=== PATIENT | male | born 1975 | race Caucasian/White ===

== ENCOUNTER 2020-08-05 14:40 | Outpatient (REF) | payer OTHER, SELFPAY | END 2020-08-05 14:41 | disposition home or self-care (01) | LOC: HO.LNP 14:40 | PROVIDERS: Visit Provider Internal Medicine | DX: Z20.828 Contact with and (suspected) exposure to other viral communicable diseases (principal) | CPT/HCPCS: U0003 ==

== ENCOUNTER 2020-10-21 13:46 | Outpatient (REF) | payer OTHER, SELFPAY ==
[2020-10-21 14:41] LABS: Influenza A PCR NEGATIVE (Negative); Influenza B PCR NEGATIVE (Negative); Resp Syncy Virus RNA Qual PCR NEGATIVE (Negative); SARS COV2 PCR INHOUSE NEGATIVE (Negative)
== END 2020-10-21 13:47 | disposition home or self-care (01) ==
LOC: HO.LNP 13:46
PROVIDERS: Visit Provider Internal Medicine
DX: R11.10 Vomiting, unspecified (principal); R50.9 Fever, unspecified; Z20.822 Contact with and (suspected) exposure to COVID-19
CPT/HCPCS: 0241U

== ENCOUNTER 2021-02-11 10:50 | Outpatient (REF) | payer OTHER, SELFPAY ==
[2021-02-11 12:12] LABS: MANUAL DIFF FLAG NO
[2021-02-11 12:19] LABS: Basophils Absolute Auto 0.1 X10*3/uL (0.0-0.2); Basophils Percent Auto 0.6 % (0-2); Eosinophils Absolute Auto 0.3 X10*3/uL (0.0-0.4); Eosinophils Percent Auto 1.9 % (0-4); Hematocrit 46.9 % (42-52); Imm Gran Abs Auto 0.06 X10*3/uL (0.00-0.03); Imm Gran Pct Auto 0.4 % (0.0-0.4); Lymphocytes Absolute Auto 1.9 X10*3/uL (1.2-4.9); Mean Corpuscular Hemoglobin 26.9 pg (27.0-33.0); Mean Corpuscular Volume 84.2 fL (80-98); Mean Platelet Volume 10.2 fL (9.4-12.4); Monocytes Absolute Auto 0.8 X10*3/uL (0.1-1.2); Monocytes Percent Auto 5.2 % (2-11); Neutrophils Absolute Auto 11.4 X10*3/uL (2.0-8.3); Neutrophils Percent Auto 78.9 % (45-73); Platelet Count 310 X10*3/uL (160-400); Red Blood Count 5.57 X10*6/uL (4.60-5.80); Red Cell Distribution Width 14.7 % (11.0-16.0); White Blood Count 14.5 X10*3/uL (4.8-10.8)
[2021-02-11 12:53] LABS: Lithium 0.46 mmol/L (0.60-1.20)
[2021-02-11 13:03] LABS: Alanine Aminotransferase 37 U/L (0-40); Albumin Level 4.7 g/dL (3.5-5.0); Alkaline Phosphatase 82 U/L (39-117); Anion Gap 14 (12-20); Aspartate Amino Transferase 25 U/L (5-37); Bilirubin Total 2.3 mg/dL (0.0-1.0); Blood Urea Nitrogen 9 mg/dL (9-16); C Reactive Protein 2.24 mg/dL (< or = 0.50); Calcium 9.7 mg/dL (8.4-10.2); Carbon Dioxide 23 mmol/L (22-29); Chloride 106 mmol/L (96-108); Estimated Glomerular Filt Rate > 60; Glucose Random 103 mg/dL (60-115); Potassium 4.2 mmol/L (3.3-5.1); Sodium 139 mmol/L (135-145); Total Protein 7.8 g/dL (6.5-8.0)
[2021-02-11 13:34] LABS: Influenza A PCR NEGATIVE (Negative); Influenza B PCR NEGATIVE (Negative); Resp Syncy Virus RNA Qual PCR NEGATIVE (Negative); SARS COV2 PCR INHOUSE NEGATIVE (Negative)
== END 2021-02-11 10:51 | disposition home or self-care (01) ==
LOC: HO.LAB 10:50
PROVIDERS: PCP Internal Medicine; Visit Provider Internal Medicine
DX: Z20.822 Contact with and (suspected) exposure to COVID-19 (principal); R63.4 Abnormal weight loss; R19.7 Diarrhea, unspecified; F31.9 Bipolar disorder, unspecified; Z79.899 Other long term (current) drug therapy
CPT/HCPCS: 0241U; 36415; 80053; 80178; 85025; 86140

== ENCOUNTER 2021-02-19 09:25 | Outpatient (REF) | payer OTHER, SELFPAY ==
--- NOTE | ~2021-02-19 | FL_ITS ---
EXAMINATION: XR GI SERIES CLINICAL INFORMATION: Diarrhea, abnormal weight loss, nausea and vomiting COMPARISON: None TECHNIQUE: Routine upper GI air contrast study was performed in upright and lying position. FINDINGS: Only oral administration of thick barium and effervescent granules there is normal propagation of bolus from the oral cavity through the pharynx, esophagus into stomach without any evidence of obstruction, narrowing or stricture. On placing patient supine and prone lying the course, caliber and peristalsis of the stomach, duodenal bulb and the sweep is normal. The mucosal pattern of this stomach and the duodenum is normal. There is moderate gastroesophageal reflux into the midesophagus. No hiatal hernia seen. FLUOROSCOPY TIME: 1.7 minutes DOSE AREA PRODUCT: 63 uGy-m2 (microgray-meter squared) FL/FL upper GI series IMPRESSION: Moderate gastroesophageal reflux without hiatal hernia. No esophageal, gastric or duodenal lesion seen.
== END 2021-02-19 09:26 | disposition home or self-care (01) ==
LOC: HO.XRAY 09:25
PROVIDERS: PCP Internal Medicine; Visit Provider Internal Medicine
DX: R19.7 Diarrhea, unspecified (principal); R11.2 Nausea with vomiting, unspecified; R63.4 Abnormal weight loss
CPT/HCPCS: 74240

== ENCOUNTER 2021-05-12 11:10 | Outpatient (REF) | payer OTHER, SELFPAY ==
[2021-05-12 11:41] LABS: MANUAL DIFF FLAG NO
[2021-05-12 11:47] LABS: Basophils Absolute Auto 0.1 X10*3/uL (0.0-0.2); Basophils Percent Auto 0.6 % (0-2); Eosinophils Absolute Auto 0.5 X10*3/uL (0.0-0.4); Hematocrit 43.4 % (42-52); Imm Gran Abs Auto 0.08 X10*3/uL (0.00-0.03); Imm Gran Pct Auto 0.5 % (0.0-0.4); Lymphocytes Absolute Auto 2.6 X10*3/uL (1.2-4.9); Lymphocytes Percent Auto 16.8 % (20-40); Mean Corpuscular HGB Conc 32.3 g/dl (31.0-36.0); Mean Corpuscular Hemoglobin 27.9 pg (27.0-33.0); Mean Corpuscular Volume 86.6 fL (80-98); Mean Platelet Volume 9.7 fL (9.4-12.4); Monocytes Absolute Auto 0.8 X10*3/uL (0.1-1.2); Monocytes Percent Auto 4.9 % (2-11); Neutrophils Absolute Auto 11.6 X10*3/uL (2.0-8.3); Neutrophils Percent Auto 74.2 % (45-73); Platelet Count 268 X10*3/uL (160-400); Red Blood Count 5.01 X10*6/uL (4.60-5.80); Red Cell Distribution Width 14.9 % (11.0-16.0); White Blood Count 15.6 X10*3/uL (4.8-10.8)
[2021-05-12 12:17] LABS: Alanine Aminotransferase 20 U/L (0-40); Albumin Level 4.2 g/dL (3.5-5.0); Alkaline Phosphatase 73 U/L (39-117); Anion Gap 11 (12-20); Aspartate Amino Transferase 13 U/L (5-37); Blood Urea Nitrogen 9 mg/dL (9-16); C Reactive Protein 1.55 mg/dL (< or = 0.50); Calcium 9.6 mg/dL (8.4-10.2); Carbon Dioxide 28 mmol/L (22-29); Chloride 106 mmol/L (96-108); Estimated Glomerular Filt Rate > 60; Glucose Random 98 mg/dL (60-115); Potassium 4.6 mmol/L (3.3-5.1); Sodium 140 mmol/L (135-145); Total Protein 6.8 g/dL (6.5-8.0)
[2021-05-12 13:28] LABS: Lithium 0.75 mmol/L (0.60-1.20)
== END 2021-05-12 11:11 | disposition home or self-care (01) ==
LOC: HO.LAB 11:10
PROVIDERS: PCP Internal Medicine; Visit Provider Internal Medicine
DX: I10 Essential (primary) hypertension (principal); E03.9 Hypothyroidism, unspecified; R10.9 Unspecified abdominal pain; R19.7 Diarrhea, unspecified; Z79.899 Other long term (current) drug therapy
CPT/HCPCS: 36415; 80053; 80178; 85025; 86140

== ENCOUNTER 2021-05-25 11:48 | Outpatient (REF) | payer OTHER, SELFPAY ==
--- NOTE | ~2021-05-25 | CT_ITS ---
EXAMINATION: CT ABDOMEN AND PELVIS WITHOUT CONTRAST CLINICAL INFORMATION: Diarrhea and abdominal pain COMPARISON: Previous CT of the abdomen and pelvis February 2019 TECHNIQUE: Multidetector volumetric imaging was performed from the superior aspect of the liver through the pubic symphysis. Sagittal and coronal reformatted images were obtained on the technologist's workstation. This CT examination was performed using dose optimization techniques as appropriate, variously including the following: *Automated exposure control *Adjustment of mA and/or kV according to patient size (this includes techniques or standardized protocols for targeted exams where dose is matched to indication/reason for exam; i.e. extremities or head) *Use of iterative reconstruction technique DLP: 939 mGy-cm FINDINGS: LUNG BASES: The visualized lung bases are unremarkable. LIVER, GALLBLADDER, AND BILIARY TREE: The liver is normal in size, shape, and attenuation. No focal hepatic lesion or biliary ductal dilatation is present. Is high attenuation seen dependently in the gallbladder questionable for gallstones. PANCREAS: Unremarkable. SPLEEN: Unremarkable. ADRENAL GLANDS: Unremarkable. KIDNEYS AND URETERS: The kidneys are normal in size, shape, and attenuation. No hydronephrosis, hydroureter, or calculi seen. There is a 1 cm low-attenuation lesion exophytic to the lower pole of the left kidney probably representing a cyst. BLADDER: Unremarkable. GASTROINTESTINAL TRACT: There is diverticulosis of the colon. The small and large bowel are otherwise unremarkable. The appendix is unremarkable. ABDOMINAL WALL: No significant hernia is appreciated. LYMPH NODES: Normal. VASCULAR: Unremarkable. PELVIC VISCERA: Unremarkable. OSSEOUS STRUCTURES: Unremarkable. CT/CT abdomen pelvis wo con IMPRESSION: Diverticulosis of the colon. Probable gallstones and small left renal cyst.
== END 2021-05-25 11:49 | disposition home or self-care (01) ==
LOC: HO.CT 11:48
PROVIDERS: PCP Internal Medicine; Visit Provider Internal Medicine
DX: R10.84 Generalized abdominal pain (principal); R19.7 Diarrhea, unspecified
CPT/HCPCS: 74176

== ENCOUNTER 2021-09-13 11:40 | Outpatient (REF) | payer OTHER, SELFPAY ==
[2021-09-13 12:32] LABS: Influenza A PCR NEGATIVE (Negative); Influenza B PCR NEGATIVE (Negative); Resp Syncy Virus RNA Qual PCR NEGATIVE (Negative); SARS COV2 PCR INHOUSE NEGATIVE (Negative)
== END 2021-09-13 11:41 | disposition home or self-care (01) ==
LOC: HO.LNP 11:40
PROVIDERS: Visit Provider Internal Medicine
DX: Z20.822 Contact with and (suspected) exposure to COVID-19 (principal); R05.9 Cough, unspecified; R06.00 Dyspnea, unspecified
CPT/HCPCS: 0241U

== ENCOUNTER 2021-11-19 16:27 | Outpatient (REF) | payer OTHER, SELFPAY ==
[2021-11-19 16:55] LABS: MANUAL DIFF FLAG NO
[2021-11-19 17:10] LABS: Basophils Absolute Auto 0.1 X10*3/uL (0.0-0.2); Basophils Percent Auto 0.6 % (0-2); Eosinophils Absolute Auto 0.7 X10*3/uL (0.0-0.4); Eosinophils Percent Auto 4.2 % (0-4); Hematocrit 45.7 % (42.0-52.0); Hemoglobin 14.3 g/dl (14.0-18.0); Imm Gran Abs Auto 0.08 X10*3/uL (0.00-0.03); Imm Gran Pct Auto 0.5 % (0.0-0.4); Lymphocytes Percent Auto 18.3 % (20-40); Mean Corpuscular HGB Conc 31.3 g/dl (31.0-36.0); Mean Corpuscular Hemoglobin 27.7 pg (27.0-33.0); Mean Corpuscular Volume 88.4 fL (80.0-98.0); Monocytes Absolute Auto 0.9 X10*3/uL (0.1-1.2); Monocytes Percent Auto 5.8 % (2-11); Neutrophils Absolute Auto 11.5 x10*3/uL (2.0-8.3); Neutrophils Percent Auto 70.6 % (45-73); Platelet Count 272 X10*3/uL (160-400); Red Blood Count 5.17 X10*6/uL (4.60-5.80); Red Cell Distribution Width 15.1 % (11.0-16.0); White Blood Count 16.3 X10*3/uL (4.8-10.8)
[2021-11-19 17:40] LABS: Alanine Aminotransferase 25 U/L (0-40); Albumin Level 4.4 g/dL (3.5-5.0); Alkaline Phosphatase 72 U/L (39-117); Anion Gap 11 (12-20); Aspartate Amino Transferase 15 U/L (5-37); Bilirubin Total 0.9 mg/dL (0.0-1.0); Blood Urea Nitrogen 12 mg/dL (9-16); C Reactive Protein 0.92 mg/dL (< or = 0.50); Calcium 10.2 mg/dL (8.4-10.2); Carbon Dioxide 26 mmol/L (22-29); Chloride 107 mmol/L (96-108); Estimated Glomerular Filt Rate > 60; Glucose Random 93 mg/dL (60-115); Potassium 4.3 mmol/L (3.3-5.1); Sodium 140 mmol/L (135-145); Total Protein 7.3 g/dL (6.5-8.0)
[2021-11-19 17:44] LABS: Lithium 0.72 mmol/L (0.60-1.20)
== END 2021-11-19 16:28 | disposition home or self-care (01) ==
LOC: HO.LAB 16:27
PROVIDERS: PCP Internal Medicine; Visit Provider Internal Medicine
DX: R10.9 Unspecified abdominal pain (principal); R19.7 Diarrhea, unspecified
CPT/HCPCS: 36415; 80053; 80178; 85025; 86140

== ENCOUNTER 2021-11-22 12:34 | Outpatient (REF) | payer OTHER, SELFPAY | END 2021-11-22 12:35 | disposition home or self-care (01) | LOC: HO.LNP 12:34 | PROVIDERS: Visit Provider Internal Medicine | DX: R10.9 Unspecified abdominal pain (principal); R19.7 Diarrhea, unspecified | CPT/HCPCS: 87045; 87046 ==

== ENCOUNTER 2022-06-14 08:21 | Day surgery (SDC) | payer OTHER, SELFPAY ==
[2022-06-09 10:53] VITALS: BMI 44.1
--- NOTE | 2022-06-13 08:32 | P.CONAN_ITS ---
Documented by User: Pauline Meclhor NP 06/13/22 08:33 HPI - Anesthesia Eval Consult details Narrative: 47yo M for Colonoscopy [facility] Past Medical History Medical History Asthma Bipolar disorder GERD (gastroesophageal reflux disease) Christopher's thyroiditis HTN (hypertension) PTSD (post-traumatic stress disorder) Sleep apnea Surgical History Surgical History History of open reduction and internal fixation (ORIF) procedure Hx of cystoscopy Hx of esophagogastroduodenoscopy Social History Social History Patient Tobacco Use Status: Former Tobacco user Quit Date: 8 yrs ago Use of substances other than those prescribed or required for medical reasons: Yes Substance Use Frequency: Daily Are you DNR?: No Advance Directives: No Advance Directives Information Provided: Yes Meds Allergies Allergy/AdvReac Type Severity Reaction Status Date / Time No Known Allergies Allergy Verified 06/14/22 08:49 [No Known Allergies*] Home Medications Medication Instructions Recorded Confirmed Last Taken Type acetaminophen 650 mg 1,300 mg PO Q8H 06/09/22 06/09/22 Unknown History tablet,extended release albuterol sulfate 90 mcg/actuation 2 puff inhalation Q4-6H PRN 06/09/22 06/09/22 06/14/22 07:45 History aerosol inhaler (ProAir HFA) Shortness Of Breath diazepam 0.5 mg PO BID PRN Anxiety 06/09/22 06/14/22 Unknown History escitalopram oxalate 20 mg tablet 20 mg PO DAILY 06/09/22 06/09/22 Unknown History lithium carbonate 450 mg 450 mg PO DAILY 06/09/22 06/09/22 Unknown History tablet,extended release metoprolol succinate 50 mg 50 mg PO DAILY 06/09/22 06/09/22 06/14/22 07:45 History tablet,extended release 24 hr clonidine HCl 0.1 mg tablet 1 tab PO TID 06/14/22 06/14/22 Unknown History levothyroxine 112 mcg tablet 112 mcg PO DAILY 06/14/22 06/14/22 Unknown History Exam Exam Date and Time: June 13, 2022 0832 Height,Weight and Vital Signs: Height 5 ft 9 in Weight 135.624 kg Pertinent Lab Results Pertinent Lab Results: Laboratory Tests 11/19/21 11/19/21 16:54 16:54 WBC 16.3 H Hgb 14.3 Hct 45.7 Plt Count 272 Sodium 140 Potassium 4.3 Chloride 107 Carbon Dioxide 26 BUN 12 Creatinine 0.91 Assessment and Plan Assessment Anesthesia Assessment: Chart Reviewed Documented by User: Amber Zarate MD 06/14/22 10:04 [facility] Past Medical History Medical History Asthma Bipolar disorder GERD (gastroesophageal reflux disease) Christopher's thyroiditis HTN (hypertension) PTSD (post-traumatic stress disorder) Sleep apnea Functional capacity: independent ambulation Family History Family history of problems with anesthesia: No Surgical History Surgical History History of open reduction and internal fixation (ORIF) procedure Hx of cystoscopy Hx of esophagogastroduodenoscopy History of Problems with Anesthesia: No Social History Social History Patient Tobacco Use Status: Former Tobacco user Quit Date: 8 yrs ago Use of substances other than those prescribed or required for medical reasons: Yes Substance Use Frequency: Daily Are you DNR?: No Advance Directives: No Advance Directives Information Provided: Yes Meds Allergies Allergy/AdvReac Type Severity Reaction Status Date / Time No Known Allergies Allergy Verified 06/14/22 08:49 [No Known Allergies*] Home Medications Medication Instructions Recorded Confirmed Last Taken Type acetaminophen 650 mg 1,300 mg PO Q8H 06/09/22 06/09/22 Unknown History tablet,extended release albuterol sulfate 90 mcg/actuation 2 puff inhalation Q4-6H PRN 06/09/22 06/09/22 06/14/22 07:45 History aerosol inhaler (ProAir HFA) Shortness Of Breath diazepam 0.5 mg PO BID PRN Anxiety 06/09/22 06/14/22 Unknown History escitalopram oxalate 20 mg tablet 20 mg PO DAILY 06/09/22 06/09/22 Unknown History lithium carbonate 450 mg 450 mg PO DAILY 06/09/22 06/09/22 Unknown History tablet,extended release metoprolol succinate 50 mg 50 mg PO DAILY 06/09/22 06/09/22 06/14/22 07:45 History tablet,extended release 24 hr clonidine HCl 0.1 mg tablet 1 tab PO TID 06/14/22 06/14/22 Unknown History levothyroxine 112 mcg tablet 112 mcg PO DAILY 06/14/22 06/14/22 Unknown History Exam Airway Mallampati Class: II TM Dist: >3cm Neck ROM: Full Heart: RRR Lungs: CTA Assessment and Plan Final Anesthetic Review Family History of Problems with Anesthesia: No History of Problems with Anesthesia: No ASA Class: III Final Preanesthetic Review: No Changes in Pt Med Stat, Meds/Allgs Chart Reviewed, Consent Obtained/Reviewed and Anes Risks/Benef Reviewed Patient Risk: Low Procedure Risk: Low Anesthetic Plan Anesthetic Plan: MAC: Disposition: Standard PACU
[2022-06-14 08:51] VITALS: BP 135/80; PULSE 66; RESP 16; TEMP 36.4; O2SAT 97
[2022-06-14] MEDS: Lactated Ringers 1,000 ML 100 ML IVCONT (09:10)
--- NOTE | 2022-06-14 09:43 | MHC.SHP ---
Pre-Procedural Eval Section A Date of Service: 06/14/22 The patient is an INPATIENT: No Changes since office visit: No Cold of Flu in the past 2 weeks, No New Medical Problems, No Changes in Medication and No Patient answered all questions The History & Physical has been completed within 30 days and I have reviewed it.: Yes Section B Chief Complaint: change in bowel habits Allergies: Allergies Allergy/AdvReac Type Severity Reaction Status Date / Time No Known Allergies Allergy Verified 06/14/22 08:49 [No Known Allergies*] Plan I have reviewed the history and physical and performed a pertinent physical examination on my patient. No changes have occurred unless specified.
--- NOTE | 2022-06-14 10:18 | P.BOP_ITS ---
Brief Operative Note Date of Service: 06/14/22 Pre-op diagnosis: change in bowels Post-op diagnosis: same Procedure: colonoscopy Surgeon: Arnol Villalobos Anesthesia: MAC Was an Blanket Cutter Hand used for this Procedure?: No Estimated blood loss (mL): 2 Pathology: other Condition: stable Disposition: PACU
[2022-06-14 10:23] VITALS: BP 116/66; PULSE 85; RESP 16; TEMP 36.4; O2SAT 96
[2022-06-14 10:38] VITALS: BP 126/67; PULSE 59; RESP 18; TEMP 36.4; O2SAT 97
--- NOTE | 2022-06-14 10:45 | OP_ITS ---
SURGEON: Arnol Villalobos MD INDICATIONS: Change in bowel habits. PREOPERATIVE DIAGNOSIS: POSTOPERATIVE DIAGNOSIS: PROCEDURE PERFORMED: Colonoscopy to the terminal ileum with snare polypectomy and biopsy. ESTIMATED BLOOD LOSS: COMPLICATIONS: ANESTHESIA: Monitored anesthesia care. ASSISTANTS: SPECIMENS: DESCRIPTION OF PROCEDURE: The procedure was performed on 06/14/2022. A history and physical performed. The risks and benefits of the procedure were explained to the patient. Informed consent was obtained. The patient was placed in the left lateral decubitus position. A digital rectal exam was performed and was found to be normal. The Olympus pediatric video colonoscope was introduced into the rectum and advanced to the cecum without difficulty. The cecum was identified by transillumination, palpation, and identification of ileocecal valve. Examination was performed. The scope was removed. He tolerated the procedure well and was returned to the recovery area in stable condition. FINDINGS: The terminal ileum was examined and appeared normal. This was biopsied. The visualized colonic mucosa was normal. There was no evidence of colitis. Random sigmoid biopsies were obtained. A total of 3 polyps were identified and removed with a snare. The largest measured 10 mm was located at the hepatic flexure. A second polyp at 70 cm measured 8 mm and was removed with a snare as well, and the third polyp in the rectum was a less than 5 mm and was also snared. There was some liquid stool, which was washed and suctioned, but in general, the prep was adequate. IMPRESSION: Colon polyps. RECOMMENDATION: Follow up the biopsy results. MD MICHAEL Faustin/KARMEN / [id number]
== END 2022-06-14 10:56 | disposition home or self-care (01) ==
PROVIDERS: PCP Internal Medicine; Visit Provider Internal Medicine Gastroenterology
PROC: 0DJD8ZZ Inspection of Lower Intestinal Tract, Via Natural or Artificial Opening Endoscopic (ICD-10-PCS; CPT 45378; principal; 2022-06-14 09:30)
DX: R19.4 Change in bowel habit (principal); D12.4 Benign neoplasm of descending colon; D12.3 Benign neoplasm of transverse colon; D12.8 Benign neoplasm of rectum; K57.30 Diverticulosis of large intestine without perforation or abscess without bleeding; K21.9 Gastro-esophageal reflux disease without esophagitis; J45.909 Unspecified asthma, uncomplicated; I10 Essential (primary) hypertension; E06.3 Autoimmune thyroiditis; G47.33 Obstructive sleep apnea (adult) (pediatric); F31.9 Bipolar disorder, unspecified; F43.10 Post-traumatic stress disorder, unspecified; Z79.899 Other long term (current) drug therapy; Z87.891 Personal history of nicotine dependence
CPT/HCPCS: 45385; 45380; 88305

== ENCOUNTER 2022-07-15 11:10 | Outpatient (REF) | payer OTHER, SELFPAY ==
[2022-07-15 13:39] LABS: MANUAL DIFF FLAG NO
[2022-07-15 13:42] LABS: Basophils Absolute Auto 0.1 X10*3/uL (0.0-0.2); Basophils Percent Auto 0.7 % (0-2); Eosinophils Absolute Auto 0.7 X10*3/uL (0.0-0.4); Eosinophils Percent Auto 4.1 % (0-4); Hemoglobin 14.4 g/dl (14.0-18.0); Imm Gran Pct Auto 0.6 % (0.0-0.4); Lymphocytes Absolute Auto 2.3 X10*3/uL (1.2-4.9); Lymphocytes Percent Auto 14.4 % (20-40); Mean Corpuscular HGB Conc 31.3 g/dl (31.0-36.0); Mean Corpuscular Hemoglobin 28.3 pg (27.0-33.0); Mean Corpuscular Volume 90.4 fL (80.0-98.0); Mean Platelet Volume 10.5 fL (9.4-12.4); Monocytes Absolute Auto 0.8 X10*3/uL (0.1-1.2); Monocytes Percent Auto 5.2 % (2-11); Platelet Count 294 X10*3/uL (160-400); Red Blood Count 5.09 X10*6/uL (4.60-5.80); Red Cell Distribution Width 14.6 % (11.0-16.0)
[2022-07-15 13:52] LABS: Lithium 0.91 mmol/L (0.60-1.20)
[2022-07-15 14:12] LABS: Alanine Aminotransferase 25 U/L (0-40); Albumin Level 4.4 g/dL (3.5-5.0); Alkaline Phosphatase 75 U/L (39-117); Anion Gap 16 (12-20); Aspartate Amino Transferase 17 U/L (5-37); Bilirubin Total 0.9 mg/dL (0.0-1.0); Blood Urea Nitrogen 10 mg/dL (9-16); C Reactive Protein 1.32 mg/dL (< or = 0.50); Calcium 9.8 mg/dL (8.4-10.2); Carbon Dioxide 25 mmol/L (22-29); Chloride 106 mmol/L (96-108); Estimated Glomerular Filt Rate > 60; Glucose Fasting 98 mg/dL (60-99); Lipase 20 U/L (8-78); Potassium 4.7 mmol/L (3.3-5.1); Sodium 142 mmol/L (135-145); Total Protein 7.3 g/dL (6.5-8.0)
[2022-07-15 14:26] LABS: Thyroid Stimulating Hormone 4.55 uIU/mL (0.32-4.0)
== END 2022-07-15 11:11 | disposition home or self-care (01) ==
LOC: HO.10HDL 11:10
PROVIDERS: Visit Provider Internal Medicine
DX: R10.9 Unspecified abdominal pain (principal); E03.9 Hypothyroidism, unspecified; F31.9 Bipolar disorder, unspecified
CPT/HCPCS: 36415; 80053; 80178; 83690; 84439; 84443; 85025; 86140

== ENCOUNTER 2022-07-20 09:36 | Outpatient (REF) | payer OTHER, SELFPAY ==
--- NOTE | ~2022-07-20 | US_ITS ---
EXAMINATION: US ABDOMEN COMPLETE CLINICAL INFORMATION: Right upper quadrant pain. COMPARISON: CT abdomen and pelvis 05/25/2021. TECHNIQUE: Real-time imaging of the abdominal viscera. FINDINGS: PANCREAS: Normal. The visualized pancreatic head and body are normal in appearance. The remainder of the pancreas is obscured from visualization by the overlying bowel gas. ABDOMINAL AORTA: The proximal, mid, and distal segments are normal in caliber. INFERIOR VENA CAVA: Visualized portions are normal. LIVER: There is hepatomegaly, with a longitudinal span of 20.1 cm. The liver contour is normal. There is diffuse increased liver parenchymal echogenicity. No focal hepatic lesion. There is no intrahepatic biliary duct dilatation seen. GALLBLADDER: The gallbladder is physiologically distended. Shadowing, mobile gallstones are present. No evidence pericholecystic fluid. COMMON BILE DUCT: Normal in caliber measuring 0.4 cm in diameter. RIGHT KIDNEY: At the lower pole, a 5 mm hyperechoic focus is seen, which does not meet formal ultrasound criteria for a calculus. No definite urinary calculus is seen.. No hydronephrosis. No renal calculi or focal parenchymal lesions. The kidney measures 11.9 cm in maximum dimension. LEFT KIDNEY: At the lower pole, a 1.3 cm in maximal diameter anechoic, simple cyst is seen. This is a benign finding, for which no imaging follow-up is recommended. No hydronephrosis or renal calculi. The kidney measures 13.3 cm in maximum dimension. SPLEEN: No focal finding. The spleen measures 13.0 cm in maximum dimension. FREE FLUID: None. US/US abdomen complete IMPRESSION: 1. There is cholelithiasis, without cholecystitis or choledocholithiasis. 2. There is hepatomegaly and borderline splenomegaly. 3. A 1.3 cm benign, simple left renal cyst is seen, for which no imaging follow-up is recommended. 4. Technically limited ultrasound examination of the pancreatic tail.
== END 2022-07-20 09:37 | disposition home or self-care (01) ==
LOC: HO.US 09:36
PROVIDERS: PCP Internal Medicine; Visit Provider Internal Medicine
DX: R10.11 Right upper quadrant pain (principal)
CPT/HCPCS: 76700

== ENCOUNTER → 2022-07-29 11:20 | Outpatient (BNVA) | payer OTHER, SELFPAY | PROVIDERS: PCP Internal Medicine; Referring Provider Internal Medicine; Visit Provider Surgery | DX: K80.20 Calculus of gallbladder without cholecystitis without obstruction (principal); R16.0 Hepatomegaly, not elsewhere classified; D72.829 Elevated white blood cell count, unspecified; G47.30 Sleep apnea, unspecified | CPT/HCPCS: 99202 ==

== ENCOUNTER 2022-08-11 11:30 | Outpatient (REF) | payer OTHER, SELFPAY ==
--- NOTE | ~2022-08-11 | CT_ITS ---
EXAMINATION: CT ABDOMEN AND PELVIS WITH CONTRAST CLINICAL INFORMATION: Diverticulitis of intestine. COMPARISON: CT abdomen and pelvis 05/25/2021. TECHNIQUE: Multidetector volumetric images were obtained from the superior aspect of the liver through the pubic symphysis following administration 85 mL of Omnipaque 350 intravenous contrast. Sagittal and coronal reformatted images were obtained on the technologist's workstation. Oral contrast: No This CT examination was performed using dose optimization techniques as appropriate, variously including the following: *Automated exposure control *Adjustment of mA and/or kV according to patient size (this includes techniques or standardized protocols for targeted exams where dose is matched to indication/reason for exam; i.e. extremities or head) *Use of iterative reconstruction technique DLP: 834 mGy-cm FINDINGS: LUNG BASES: The lung bases are clear. Heart size appears normal. Mild coronary artery calcifications are present. LIVER, GALLBLADDER, AND BILIARY TREE: The liver is normal in size, shape, and attenuation. No focal hepatic lesion or biliary ductal dilatation is present. The gallbladder is contracted with slightly hyperdense material within, question small gravel versus septation. PANCREAS: Unremarkable. SPLEEN: Unremarkable. ADRENAL GLANDS: Unremarkable. KIDNEYS AND URETERS: The kidneys are normal in size, shape, and attenuation. No hydronephrosis, hydroureter, or calculi seen. No perinephric stranding. There is a 1.3 x 1.1 cm exophytic lesion, lower pole left kidney, measuring -12 Hounsfield units. Previously lesion measured 1.0 cm. No additional lesion seen. BLADDER: Unremarkable. GASTROINTESTINAL TRACT: There are scattered diverticuli, stool and gas seen throughout the colon without any mural thickening or pericolic fat stranding. Oral contrast opacified small bowel loops and the right colon are unremarkable. Appendix is normal caliber. No inflammatory process seen in the abdomen. ABDOMINAL WALL: No significant hernia is appreciated. LYMPH NODES: Normal. VASCULAR: Unremarkable. PELVIC VISCERA: Unremarkable. OSSEOUS STRUCTURES: No aggressive lytic or sclerotic process seen. CT/CT abdomen pelvis w IV con IMPRESSION: 1. Scattered colonic diverticulosis without diverticulitis. 2. Exophytic 1.3 cm lesion lower pole left kidney, stable. 3. Slightly hyperdense areas in the contracted gallbladder, question gravel versus septation.
[2022-08-11] MEDS: Barium Sulfate Oral (Mocha) 450 ML ORAL.SUSP 900 ML PO (13:58)
[2022-08-11] MEDS: iohexoL 350 MG/ML 100 ML INFUS..BTL IV (13:59)
== END 2022-08-11 11:31 | disposition home or self-care (01) ==
LOC: HO.CT 11:30
PROVIDERS: Visit Provider Surgery
DX: K57.92 Diverticulitis of intestine, part unspecified, without perforation or abscess without bleeding (principal)
CPT/HCPCS: 74177; Q9967

== ENCOUNTER → 2022-08-16 11:02 | Outpatient (BNVA) | payer OTHER, SELFPAY | PROVIDERS: PCP Internal Medicine; Referring Provider Internal Medicine; Visit Provider Surgery | DX: K80.20 Calculus of gallbladder without cholecystitis without obstruction (principal); G47.30 Sleep apnea, unspecified; I10 Essential (primary) hypertension; D72.829 Elevated white blood cell count, unspecified; J45.909 Unspecified asthma, uncomplicated; R19.7 Diarrhea, unspecified; R63.4 Abnormal weight loss | CPT/HCPCS: 99212 ==

== ENCOUNTER 2022-08-17 12:23 | Outpatient (REF) | payer OTHER, SELFPAY ==
[2022-08-18 14:04] LABS: Transglutaminase Ab IgG <1.0 U/mL
[2022-08-18 14:23] LABS: Immunoglobulin A 260 mg/dL (47-310)
== END 2022-08-17 12:24 | disposition home or self-care (01) ==
LOC: HO.LAB 12:23
PROVIDERS: PCP Internal Medicine; Visit Provider Internal Medicine Gastroenterology
DX: R10.84 Generalized abdominal pain (principal)
CPT/HCPCS: 36415; 82784; 86364

== ENCOUNTER → 2022-10-20 14:09 | Outpatient (BNVA) | payer OTHER, SELFPAY | PROVIDERS: PCP Internal Medicine; Referring Provider Internal Medicine Gastroenterology; Visit Provider Surgery | DX: K80.00 Calculus of gallbladder with acute cholecystitis without obstruction (principal); R10.11 Right upper quadrant pain | CPT/HCPCS: 99202 ==

== ENCOUNTER 2022-11-07 08:11 | Day surgery (SDC) | payer OTHER, SELFPAY ==
[2022-11-03 10:11] VITALS: BMI 43.7
[2022-11-07] VITALS (11 sets, daily range): BP systolic 116–160; BP diastolic 63–90; PULSE 62–84; RESP 16–18; TEMP 36.4–36.8; O2SAT 95–100
[2022-11-07] MEDS: Lactated Ringers 1,000 ML 100 ML IVCONT (08:27)
--- NOTE | 2022-11-07 09:33 | MHC.SHP ---
Pre-Procedural Eval Section A Date of Service: 11/07/22 The patient is an INPATIENT: No Changes since office visit: Yes Patient answered all questions; No Cold of Flu in the past 2 weeks, No New Medical Problems and No Changes in Medication The History & Physical has been completed within 30 days and I have reviewed it.: Yes Section B Chief Complaint: Calculus of gallbladder with acute cholecystitis Allergies: Allergies Allergy/AdvReac Type Severity Reaction Status Date / Time No Known Allergies Allergy Verified 11/07/22 08:44 [No Known Allergies*] Plan Diagnosis/Plan: Unchanged I have reviewed the history and physical and performed a pertinent physical examination on my patient. No changes have occurred unless specified. Time Spent With Patient Time: Total time managing care of this patient today ____ minutes.
--- NOTE | 2022-11-07 09:36 | HO.ANESPROP2 ---
HPI - Anesthesia Eval Consult details Narrative: super morbid obese male with BELA, Htn, for lap dawit PMFSH Active Problems Active Problems: All Active Problems (Updated 10/20/22 @ 16:40 by Mitchell Ashford MD) Hepatomegaly (Acute) Gallstones (Acute) Leukocytosis (Acute) Diarrhea (Acute) Weight loss (Acute) Cholecystitis, acute with cholelithiasis (Acute) Asthma (Acute) HTN (hypertension) (Acute) Sleep apnea (Acute) Past Medical History Medical History Asthma Bipolar disorder GERD (gastroesophageal reflux disease) Christopher's thyroiditis HTN (hypertension) PTSD (post-traumatic stress disorder) Sleep apnea Family History Family history of problems with anesthesia: No Surgical History Surgical History H/O colonoscopy History of open reduction and internal fixation (ORIF) procedure Hx of cystoscopy Hx of esophagogastroduodenoscopy History of Problems with Anesthesia: No Social History Social History Patient Tobacco Use Status: Former Tobacco user Quit Date: 8 yrs ago Substance Use Frequency: Daily Are you DNR?: No Advance Directives: No Advance Directives Information Provided: Yes Nutrition Risks: No Nutritional Risk Meds Allergies Allergy/AdvReac Type Severity Reaction Status Date / Time No Known Allergies Allergy Verified 11/07/22 08:44 [No Known Allergies*] Active Medications: Current Medications Lactated Ringer's (Lr) 1,000 mls @ 100 mls/hr IVCONT .Q10H AURE Last Admin: 11/07/22 08:27 Dose: 100 mls/hr Home Medications Medication Instructions Recorded Confirmed Last Taken Type acetaminophen 650 mg 1,300 mg PO Q8H 06/09/22 11/03/22 Unknown History tablet,extended release albuterol sulfate 90 mcg/actuation 2 puff inhalation Q4-6H PRN 06/09/22 11/03/22 06/14/22 07:45 History aerosol inhaler (ProAir HFA) Shortness Of Breath escitalopram oxalate 20 mg tablet 20 mg PO DAILY 06/09/22 11/03/22 Unknown History lithium carbonate 450 mg 450 mg PO DAILY 06/09/22 11/03/22 Unknown History tablet,extended release metoprolol succinate 50 mg 50 mg PO DAILY 06/09/22 11/03/22 06/14/22 07:45 History tablet,extended release 24 hr clonidine HCl 0.1 mg tablet 1 tab PO TID 06/14/22 11/03/22 Unknown History levothyroxine 112 mcg tablet 112 mcg PO DAILY 06/14/22 11/03/22 Unknown History diazepam 2 mg tablet 2 mg PO BID PRN Anxiety 11/03/22 11/03/22 Unknown History Exam Exam Date and Time: November 07, 2022 0936 Height,Weight and Vital Signs: Height 5 ft 10 in Weight 138.346 kg Last Vital Signs Temp 98.2 F 11/07/22 08:44 Pulse 70 11/07/22 08:44 Resp 18 11/07/22 08:44 BP 150/90 H 11/07/22 08:44 Pulse Ox 97 11/07/22 08:44 O2 Del Method 11/07/22 08:44 Airway Mallampati Class: III TM Dist: >3cm Neck ROM: Full Heart: rrr Lungs: cta Assessment and Plan Assessment Anesthesia Assessment: Anesthesia Plan Discussed and Chart Reviewed Final Anesthetic Review Family History of Problems with Anesthesia: No History of Problems with Anesthesia: No NPO: Yes ASA Class: III Final Preanesthetic Review: No Changes in Pt Med Stat, Meds/Allgs Chart Reviewed, Consent Obtained/Reviewed and Anes Risks/Benef Reviewed Patient Risk: Intermediate Procedure Risk: Intermediate Anesthetic Plan Anesthetic Plan: GA and Agree w/ Assess. and Plan Disposition: Standard PACU
--- NOTE | 2022-11-07 11:07 | W.PM.OPN ---
Operative Note Operative Note Date of Service: 11/07/22 Narrative: Preoperative diagnosis: Acute cholecystitis, cholelithiasis Postoperative diagnosis: Same Procedure: Laparoscopic cholecystectomy Surgeon: Mitchell Ashford MD Corporate Recruiter: MEGAN Resendiz Anesthesia: General endotracheal Indications for procedure: 47-year-old male with complaints of abdominal pain right upper quadrant found to have several large gallstones within the gallbladder. Operative findings: Distended gallbladder with several large gallstones within the gallbladder Specimen: gallbladder Estimated blood loss: 2 mL Complications: none Procedure details: Patient was brought to the OR and placed in a supine position. After administering general anesthesia the patient's abdomen was prepped with ChloraPrep and draped in a sterile fashion. Local anesthesia consisting of 0.5% Sensorcaine without epinephrine was infiltrated in a periumbilical region. A 5 mm incision was made above the umbilicus in a transverse fashion. The Veress needle was then inserted while elevating abdominal cavity with towel clips. After positive drop test the abdomen was insufflated to a pressure of 15 mm of mercury. The Veress needle was then removed and a 5 mm trocar inserted. The camera was inserted in the abdomen explored. A 12 mm trocar was then placed in the epigastrium. Two 5 mm trocars placed in the right upper quadrant by the assistant cross country coach. The patient was placed in reverse Trendelenburg positioning and rotated to the left. The gallbladder was grasped with the fundus and retracted cephalad by the assistant cross country coach. The infundibulum was then grasped and retracted away from the liver bed, also by the assistant cross country coach. The Dolphin dissected was then used by the surgeon to dissect the peritoneum off the infundibulum to reveal the junction with the cystic duct. Cystic artery was noted slightly medial and posterior to the cystic duct. After obtaining a critical view the cystic duct was doubly clipped and divided. The cystic artery was then doubly clipped and divided. The gallbladder was then dissected off the liver bed using electrocautery with an L hook. Hemostasis was assured all times using the electrocautery. When the gallbladder is completely dissected off the liver bed was placed in an Endo-Catch bag and brought out through the epigastric incision. The gallbladder was sent to pathology for further examination. The abdomen was then re-examined. The liver bed was irrigated and suctioned dry. No bleeding or bile leak could be identified. A small piece of Surgicel was placed at the liver edge. CO2 was then evacuated and all trocars removed. Fascia was closed at the epigastric incision using a [id number] 0 Polysorb suture. Skin was closed in all incisions using a subcuticular 4 0 Polysorb suture by both the surgeon and assistant cross country coach. Sterile dressings consisting of Steri-Strips, 2 x 2 gauze, and Tegaderm were then applied. The patient tolerated the procedure well. Sponge instrument and needle counts reported as correct. The patient was transferred to PACU in stable condition.
[2022-11-07] MEDS: ondansetron HCL 4 MG/2 ML VIAL IVPUSH (12:26)
== END 2022-11-07 13:58 | disposition home or self-care (01) ==
PROVIDERS: PCP Internal Medicine; Visit Provider Surgery
PROC: 0FT44ZZ Resection of Gallbladder, Percutaneous Endoscopic Approach (ICD-10-PCS; CPT 47562; principal; 2022-11-07 09:50)
DX: K80.10 Calculus of gallbladder with chronic cholecystitis without obstruction (principal); K21.9 Gastro-esophageal reflux disease without esophagitis; I10 Essential (primary) hypertension; G47.33 Obstructive sleep apnea (adult) (pediatric); E06.3 Autoimmune thyroiditis; F43.10 Post-traumatic stress disorder, unspecified; J45.909 Unspecified asthma, uncomplicated; Z79.899 Other long term (current) drug therapy; Z87.891 Personal history of nicotine dependence
CPT/HCPCS: 47562; 88304; J0131; J1100; J1170; J2250; J2405; J2550; J3010

== ENCOUNTER → 2022-11-15 09:12 | Outpatient (BNVA) | payer OTHER, SELFPAY | PROVIDERS: PCP Internal Medicine; Referring Provider Internal Medicine; Visit Provider Surgery | DX: Z13.89 Encounter for screening for other disorder (principal) ==

== ENCOUNTER 2023-02-10 08:00 | Outpatient (REF) | payer OTHER, SELFPAY ==
[2023-02-10 08:10] LABS: MANUAL DIFF FLAG NO
[2023-02-10 08:52] LABS: Basophils Absolute Auto 0.1 X10*3/uL (0.0-0.2); Basophils Percent Auto 0.7 % (0-2); Eosinophils Absolute Auto 0.6 X10*3/uL (0.0-0.4); Eosinophils Percent Auto 4.2 % (0-4); Hematocrit 46.3 % (42.0-52.0); Hemoglobin 14.8 g/dl (14.0-18.0); Imm Gran Abs Auto 0.08 X10*3/uL (0.00-0.03); Imm Gran Pct Auto 0.5 % (0.0-0.4); Lymphocytes Absolute Auto 2.9 X10*3/uL (1.2-4.9); Lymphocytes Percent Auto 19.2 % (20-40); Mean Corpuscular Hemoglobin 28.6 pg (27.0-33.0); Mean Corpuscular Volume 89.4 fL (80.0-98.0); Mean Platelet Volume 9.7 fL (9.4-12.4); Monocytes Absolute Auto 0.8 X10*3/uL (0.1-1.2); Monocytes Percent Auto 5.3 % (2-11); Neutrophils Absolute Auto 10.5 x10*3/uL (2.0-8.3); Neutrophils Percent Auto 70.1 % (45-73); Platelet Count 288 X10*3/uL (160-400); Red Blood Count 5.18 X10*6/uL (4.60-5.80); Red Cell Distribution Width 13.8 % (11.0-16.0)
[2023-02-10 09:25] LABS: Lithium 0.97 mmol/L (0.60-1.20)
[2023-02-10 09:45] LABS: Anion Gap 12 (12-20); Blood Urea Nitrogen 10 mg/dL (9-16); Calcium 10.1 mg/dL (8.4-10.2); Carbon Dioxide 26 mmol/L (22-29); Chloride 106 mmol/L (96-108); Estimated Glomerular Filt Rate > 60; Glucose Random 100 mg/dL (60-115); Potassium 4.4 mmol/L (3.3-5.1); Sodium 140 mmol/L (135-145)
[2023-02-10 09:51] LABS: Thyroid Stimulating Hormone 28.39 uIU/mL (0.32-4.0)
== END 2023-02-10 08:01 | disposition home or self-care (01) ==
LOC: HO.LAB 08:00
PROVIDERS: Nurse Practitioner Psychiatric/Mental Health; Visit Provider Psychiatry & Neurology Psychiatry
DX: F31.81 Bipolar II disorder (principal); Z79.899 Other long term (current) drug therapy
CPT/HCPCS: 36415; 80048; 80178; 84443; 85025

== ENCOUNTER 2023-02-14 09:15 | Outpatient (RCR) | payer OTHER, SELFPAY ==
[2023-01-26 11:30] VITALS: BP 120/80; PULSE 56; TEMP 37.3
[2023-01-26 11:38] VITALS: BMI 46.1
--- NOTE | 2023-01-26 12:06 | HO.PHPPROGNO ---
Subjective Subjective Reason For Visit: MDD Diagnostics Vital Signs (24Hr): Vital Signs - 24 hr 01/26/23 11:30 Temperature 99.2 F Pulse Rate 56 Blood Pressure 120/80 BMI result Body Mass Index 46.1 Assessment & Plan Certification I certify that partial hospital treatment is medically necessary due to the symptoms and problems resulting from the patient's mental illness and the failure to treat the patient at the partial hospital level of care would likely result in the patient requiring inpatient psychiatric care which could not be prevented at a less intensive level of care. Total time managing care of this patient today ____ minutes. Discharge Plan Discharge Attending provider: Harman Ricci Medications: New oxcarbazepine 150 mg tablet 150 mg PO BID Qty: 20 0RF No Action diazepam 2 mg tablet 2 mg PO BID PRN (Reason: Anxiety) oxycodone 5 mg tablet 5 mg PO Q6H PRN (Reason: pain (scale score 7-10)) Qty: 15 0RF Rx Instructions: Partial Fill upon patient request. metoprolol succinate 50 mg Tablet Extended Release 24 Hr 50 mg PO DAILY lithium carbonate 450 mg Tablet Extended Release 450 mg PO DAILY acetaminophen 650 mg Tablet Extended Release 1,300 mg PO Q8H albuterol sulfate [ProAir HFA] 90 mcg/actuation Hfa Aerosol Inhaler 2 puff INHALATION Q4-6H PRN (Reason: Shortness Of Breath) escitalopram oxalate 20 mg Tablet 20 mg PO DAILY clonidine HCl 0.1 mg tablet 1 tab PO TID levothyroxine 112 mcg tablet 112 mcg PO DAILY
--- NOTE | 2023-01-27 08:18 | HO.PHP ---
The clients case was reviewed and opened in treatment team
--- NOTE | 2023-01-27 14:29 | PC.NURSE ---
Patient left early as he stated his stomach was upset and he vomited. He plans on coming to the program on Monday. He has not started new medication oxcarbazapine.
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
--- NOTE | 2023-02-01 08:33 | HO.PHP ---
The client called out sick
--- NOTE | 2023-02-07 14:04 | P.PNPSP_ITS ---
Subjective Subjective Date of Service: 02/02/23 Reason For Visit: MDD Medical Problems Affecting Mental Status: No Interim History: Less mood lability, although still present. Tolerating start of trileptal well. Intermittent SI, states ?multiple plans ?, no intent. Reports that he feels safe. Finding groups helpful. Continues with GI issues, has upcoming appt with provider (had gallbladder removed 2 months ago). Patient requesting short-term disability paperwork completed. Medication Compliance: Yes Side effects from medications: No Attending Groups: Yes Review of Systems Acute medical concerns: No Medical Review of Systems: unchanged Review of Systems Review of Systems Yes all other systems are reviewed and are negative Constitutional: Reports no additional constitutional complaints Mental Status Exam Mental Status Exam Narrative: Well developed, well nourished male, appears stated age. No tics or tremors, no abnormal movements. Patient Appearance: Well Grooomed and Appropriate Patient Orientation: Person, Place, Time and Situation Level of Consciousness: Appropriate and Alert Patient Behavior: Appropriate, Cooperative and Good Eye Contact Mood Description: Depressed, Anxious and Labile (improving) Affect Description: Depressed and Anxious Patient Cognition Impaired: No Ability to Follow Directions: Excellent Speech Pattern: Clear and Appropriate Memory Description: Intact Hallucinations: None Delusions: Not Present Thought Process: Intact and Linear Thought Content: positive for Suicidal Ideation (with plan, no intent) Depressive Symptoms: Increased Anxiety, Increased Irritability, Changes in Appetite (decreased), Loss of Int. in Activity, Hopelessness, Isolating- Friends/Family, Unhappiness, Increased Fatigue and Thoughts of /Suicide Judgement: Fair Diagnostics Vital Signs (24Hr): BMI result Body Mass Index 46.1 Assessment & Plan Assessment & Plan (1) Major depressive disorder, recurrent episode, in partial remission with anxious distress: Status: Acute Code(s): F33.41 - Major depressive disorder, recurrent, in partial remission Assessment and Plan: Continues with depressed, anxious mood an affect. Reports mood lability, although improvement with beginning Trileptal. Discussed increasing does, willing to try higher dose at this time. Continues with intermittent passive SI, ?multiple plans ?, no intent. Feels safe. Has been to this partial program multiple times in the past with success. Reports finding groups helpful at this time. Patient requesting short-term disability paperwork completed. Discussed form with patient. (2) PTSD (post-traumatic stress disorder): Status: Acute Code(s): F43.10 - Post-traumatic stress disorder, unspecified Plan 1. Continue with current [facility] plan of care. 2. Short-term disability paperwork completed. 3. Increase oxcarbamazepine to 150 mg in a.m., 300 mg in p.m. 4. Continue with other medications as currently prescribed. 5. Follow-up as per protocol. Patient educated on: diagnosis, medication risk/benefits and therapeutic strategies Informed Consent: understands Reason for contiued partial hosp. stay Substantial Risk for: harm to self, inability to function, rapid decompensation and med/psych decompensation Certification I certify that partial hospital treatment is medically necessary due to the symptoms and problems resulting from the patient's mental illness and the failure to treat the patient at the partial hospital level of care would likely result in the patient requiring inpatient psychiatric care which could not be prevented at a less intensive level of care. Total time managing care of this patient today __25__ minutes. Discharge Plan Discharge Attending provider: Harman Ricci Medications: New oxcarbazepine 150 mg tablet See Rx Instructions .ROUTE .COMPLEX Qty: 30 0RF Rx Instructions: Take 1 tab (150mg) in am, and 2 tabs (300mg) at night. No Action diazepam 2 mg tablet 2 mg PO BID PRN (Reason: Anxiety) metoprolol succinate 50 mg Tablet Extended Release 24 Hr 50 mg PO DAILY lithium carbonate 450 mg Tablet Extended Release 450 mg PO DAILY escitalopram oxalate 20 mg Tablet 20 mg PO DAILY clonidine HCl 0.1 mg tablet 1 tab PO TID levothyroxine 112 mcg tablet 112 mcg PO DAILY lithium carbonate 450 mg tablet extended release 900 mg PO BEDTIME albuterol sulfate [Ventolin HFA] 90 mcg/actuation HFA aerosol inhaler 2 puff inhalation Q4H
--- NOTE | 2023-02-08 09:30 | HO.PHP ---
Anton called out sick. Gordillo that he is safe and hopes to be in tomorrow
--- NOTE | 2023-02-09 13:19 | P.PNPSP_ITS ---
Subjective Subjective Date of Service: 02/09/23 Reason For Visit: MDD Medical Problems Affecting Mental Status: No Interim History: Describes mood as ?pretty decent?. No SI, no safety concerns. Reports fine tremor hands bilaterally past 6 months, more pronounced on left side, especially left index finger. Plans to obtain labs tomorrow morning. Medication Compliance: Yes Side effects from medications: Yes (possible, r/t lithium) Attending Groups: Yes Review of Systems Acute medical concerns: No Medical Review of Systems: unchanged Review of Systems Review of Systems Continues with GI issues, s/p gallbladder removal several months ago. Yes all other systems are reviewed and are negative Eyes: Reports no additional eye complaints Mental Status Exam Mental Status Exam Narrative: Well developed, well nourished male, appears stated age. Fine tremor bilat upper extremities, more pronounced on the left hand/left index finger Patient Appearance: Well Grooomed and Appropriate Patient Orientation: Person, Place, Time and Situation Level of Consciousness: Appropriate and Alert Patient Behavior: Appropriate, Cooperative and Good Eye Contact Mood Description: Depressed (Improving) and Anxious (Improving) Affect Description: Appropriate and Anxious Patient Cognition Impaired: No Ability to Follow Directions: Excellent Speech Pattern: Clear and Appropriate Memory Description: Intact Hallucinations: None Delusions: Not Present Thought Process: Intact and Linear Depressive Symptoms: Increased Irritability, Loss of Int. in Activity, Isolating-Friends/Family and Increased Fatigue Abnormal Motor Activity Signs and Symptoms: Tremors (fine bilat, hands, more pronounced left hand/index finger) Judgement: Fair Diagnostics Vital Signs (24Hr): BMI result Body Mass Index 46.1 Assessment & Plan Assessment & Plan (1) Bipolar disorder: Status: Acute Code(s): F31.9 - Bipolar disorder, unspecified Assessment and Plan: Patient is less depressed, less anxious although still present. Denies SI today, no safety concerns at this time. No mood lability noted. Reports that he does feel more stabilized with the increased ox carbamazepine does, would like to remain on this dose at this time. Reports taking all of his medications as currently prescribed at this time, no concerns. Finding groups helpful. No symptoms of PTSD reported. He does report a fine tremor, more pronounced some left hand. States that he has had this for the past 6 months. Has not yet obtained labs that were ordered last week. Plans to obtain them tomorrow morning. Does report he had run out of his levothyroxine for a short period of time, wondering if this is contributing. Continues with GI upset, missed 2 days this week due to GI problems, status post gallbladder removal surgery 2 months ago. Working with medical providers regarding this. (2) PTSD (post-traumatic stress disorder): Status: Acute Code(s): F43.10 - Post-traumatic stress disorder, unspecified Plan 1. Continue with current [facility] plan of care. 2. Continue with current medication regimen. 3. Follow-up as per protocol. Patient educated on: diagnosis, medication risk/benefits and therapeutic strategies Informed Consent: understands Reason for contiued partial hosp. stay Substantial Risk for: inability to function, rapid decompensation and med/psych decompensation Certification I certify that partial hospital treatment is medically necessary due to the symptoms and problems resulting from the patient's mental illness and the failure to treat the patient at the partial hospital level of care would likely result in the patient requiring inpatient psychiatric care which could not be prevented at a less intensive level of care. Total time managing care of this patient today _20___ minutes. Discharge Plan Discharge Attending provider: Harman Ricci Medications: New oxcarbazepine 150 mg tablet See Rx Instructions .ROUTE .COMPLEX Qty: 30 0RF Rx Instructions: Take 1 tab (150mg) in am, and 2 tabs (300mg) at night. No Action diazepam 2 mg tablet 2 mg PO BID PRN (Reason: Anxiety) metoprolol succinate 50 mg Tablet Extended Release 24 Hr 50 mg PO DAILY lithium carbonate 450 mg Tablet Extended Release 450 mg PO DAILY escitalopram oxalate 20 mg Tablet 20 mg PO DAILY clonidine HCl 0.1 mg tablet 1 tab PO TID levothyroxine 112 mcg tablet 112 mcg PO DAILY lithium carbonate 450 mg tablet extended release 900 mg PO BEDTIME albuterol sulfate [Ventolin HFA] 90 mcg/actuation HFA aerosol inhaler 2 puff inhalation Q4H
--- NOTE | 2023-02-13 13:51 | PC.NURSE ---
Spoke to Anton regarding f/u with Dr Swann for TSH level at 28.39. Anton stated he spoke to doctor Swann's office today and has an appointment next Monday to f/u.
--- NOTE | 2023-02-14 10:12 | HO.PHPPROGNO ---
Subjective Subjective Date of Service: 02/14/23 Reason For Visit: MDD Medical Problems Affecting Mental Status: No Interim History: Describes mood as ?not bad, anxious about returning to work tomorrow ?. No SI, no safety concerns. Requesting return to work note with no restrictions. Medication Compliance: Yes Side effects from medications: No Attending Groups: Yes Review of Systems Acute medical concerns: No Medical Review of Systems: unchanged Review of Systems Review of Systems Yes all other systems are reviewed and are negative Constitutional: Reports no additional constitutional complaints Mental Status Exam Mental Status Exam Narrative: NAD Patient Appearance: Well Grooomed and Appropriate Patient Orientation: Person, Place, Time and Situation Level of Consciousness: Appropriate and Alert Patient Behavior: Appropriate, Cooperative and Good Eye Contact Mood Description: Anxious Affect Description: Anxious Patient Cognition Impaired: No Ability to Follow Directions: Excellent Speech Pattern: Clear and Appropriate Memory Description: Intact Hallucinations: None Delusions: Not Present Thought Process: Intact and Linear Thought Content: positive for Intact, positive for Goal Oriented and positive for Linear Depressive Symptoms: Increased Anxiety, Isolating-Friends/Family and Increased Fatigue Judgement: Good Diagnostics Vital Signs (24Hr): BMI result Body Mass Index 46.1 Assessment & Plan Assessment & Plan (1) Bipolar disorder: Status: Acute Code(s): F31.9 - Bipolar disorder, unspecified Assessment and Plan: States mood is not bad , but anxious . Has found program helpful. No SI, no safety concerns. Discussed TSH level, lithium level. Reviewed lithium and side effects regarding thyroid, kidney function. Has an appointment with primary care provider on Monday. Is taking prescribed levothyroxine again. (2) PTSD (post-traumatic stress disorder): Status: Acute Code(s): F43.10 - Post-traumatic stress disorder, unspecified Plan Patient states that he has found program helpful, continues with some anxiety, but overall feels ready for discharge today. Plans to return to work tomorrow. Return to work note with no restrictions provided to patient. 1. Patient to follow-up with outpatient providers going forward. Patient educated on: diagnosis, medication risk/benefits and therapeutic strategies Informed Consent: understands Reason for contiued partial hosp. stay Substantial Risk for: stable for discharge Certification I certify that partial hospital treatment is medically necessary due to the symptoms and problems resulting from the patient's mental illness and the failure to treat the patient at the partial hospital level of care would likely result in the patient requiring inpatient psychiatric care which could not be prevented at a less intensive level of care. Total time managing care of this patient today __20__ minutes. Discharge Plan Discharge Attending provider: Harman Ricci Medications: New oxcarbazepine 150 mg tablet See Rx Instructions .ROUTE .COMPLEX Qty: 30 0RF Rx Instructions: Take 1 tab (150mg) in am, and 2 tabs (300mg) at night. oxcarbazepine 150 mg tablet See Rx Instructions .ROUTE .COMPLEX Qty: 90 0RF Rx Instructions: 150 mg orally in am, and 300mg at bedtime No Action diazepam 2 mg tablet 2 mg PO BID PRN (Reason: Anxiety) metoprolol succinate 50 mg Tablet Extended Release 24 Hr 50 mg PO DAILY lithium carbonate 450 mg Tablet Extended Release 450 mg PO DAILY escitalopram oxalate 20 mg Tablet 20 mg PO DAILY clonidine HCl 0.1 mg tablet 1 tab PO TID levothyroxine 112 mcg tablet 112 mcg PO DAILY lithium carbonate 450 mg tablet extended release 900 mg PO BEDTIME albuterol sulfate [Ventolin HFA] 90 mcg/actuation HFA aerosol inhaler 2 puff inhalation Q4H Stand Alone Forms: Patient Portal Discharge page Patient Education: Bipolar Disorder (DC)
== END 2023-02-14 23:59 | disposition home or self-care (01) ==
LOC: HO.PHPA 09:15
PROVIDERS: Visit Provider Psychiatry & Neurology Psychiatry
DX: F33.41 Major depressive disorder, recurrent, in partial remission (principal); F31.9 Bipolar disorder, unspecified; F43.10 Post-traumatic stress disorder, unspecified; Z79.899 Other long term (current) drug therapy
CPT/HCPCS: 90791; 90853

== ENCOUNTER → 2023-02-14 09:15 | Outpatient (BNV) | payer OTHER, SELFPAY | PROVIDERS: Visit Provider Psychiatry & Neurology Psychiatry | DX: F43.10 Post-traumatic stress disorder, unspecified (principal); F31.9 Bipolar disorder, unspecified | CPT/HCPCS: 90792 ==

== ENCOUNTER → 2023-05-17 12:08 | Outpatient (BNVA) | payer OTHER, SELFPAY | PROVIDERS: PCP Internal Medicine; Visit Provider Psychiatry & Neurology Psychiatry ==

== ENCOUNTER → 2023-06-08 12:30 | Outpatient (BNV) | payer OTHER, SELFPAY | PROVIDERS: PCP Internal Medicine; Visit Provider Psychiatry & Neurology Psychiatry | DX: F33.2 Major depressive disorder, recurrent severe without psychotic features (principal); F43.12 Post-traumatic stress disorder, chronic | CPT/HCPCS: 90867; 90868 ==

== ENCOUNTER 2023-08-25 12:30 | Outpatient (RCR) | payer MEDICAID, OTHER, SELFPAY ==
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
--- NOTE | 2023-06-08 21:00 | HO.TMSDAILY2 ---
TMS Daily Progress Note Daily TMS Progress Note Date of Service: 06/07/23 Week #: 1 Treatment #(10-10): 1 PHQ-9 Pre-Treatment (10-07): 18 PHQ-9 Most Recent (10-07): 18 Reviewed: TMS Tech Note Reviewed Verification: I have reviewed the TMS Construction Plumber Note and agree with the contents. The patient remains a candidate to continue TMS treatment per protocol. Assessment and Plan (1) Major depressive disorder, recurrent episode, severe with anxious distress: Status: Acute (2) ADHD (attention deficit hyperactivity disorder): Status: Acute (3) Chronic post-traumatic stress disorder (PTSD): Status: Acute Plan pt tolerated mapping without difficulty and 1 st tx Time Spent With Patient Time: Total time managing care of this patient today ____ minutes.
--- NOTE | 2023-06-08 21:03 | HO.TMSDAILY2 ---
TMS Daily Progress Note Daily TMS Progress Note Date of Service: 06/08/23 Week #: 1 Treatment #(10-10): 2 PHQ-9 Pre-Treatment (10-07): 18 PHQ-9 Most Recent (10-07): 18 Reviewed: TMS Tech Note Reviewed Verification: I have reviewed the TMS School Fundraising Director Note and agree with the contents. The patient remains a candidate to continue TMS treatment per protocol. Assessment and Plan (1) Major depressive disorder, recurrent episode, severe with anxious distress: Status: Acute Plan tx 2 tolerated with out difficulty Time Spent With Patient Time: Total time managing care of this patient today ____ minutes.
--- NOTE | 2023-06-21 22:23 | HO.TMSDAILY2 ---
TMS Daily Progress Note Daily TMS Progress Note Date of Service: 06/21/23 Week #: 2 Treatment #(10-10): 8 PHQ-9 Pre-Treatment (10-07): 18 PHQ-9 Most Recent (10-07): 18 Reviewed: TMS Tech Note Reviewed Verification: I have reviewed the TMS Customs Compliance Analyst Note and agree with the contents. The patient remains a candidate to continue TMS treatment per protocol. Assessment and Plan (1) ADHD (attention deficit hyperactivity disorder): Status: Acute (2) Chronic post-traumatic stress disorder (PTSD): Status: Acute (3) Major depressive disorder, recurrent episode, severe with anxious distress: Status: Acute Plan cont plan of care Time Spent With Patient Time: Total time managing care of this patient today ____ minutes.
--- NOTE | 2023-06-22 22:07 | HO.TMSDAILY2 ---
TMS Daily Progress Note Daily TMS Progress Note Date of Service: 06/22/23 Week #: 2 Treatment #(10-10): 9 PHQ-9 Pre-Treatment (10-07): 18 PHQ-9 Most Recent (10-07): 18 Reviewed: TMS Tech Note Reviewed Verification: I have reviewed the TMS Talent Acquisition Sourcer Note and agree with the contents. The patient remains a candidate to continue TMS treatment per protocol. Assessment and Plan (1) ADHD (attention deficit hyperactivity disorder): Status: Acute (2) Chronic post-traumatic stress disorder (PTSD): Status: Acute (3) Major depressive disorder, recurrent episode, severe with anxious distress: Status: Acute Time Spent With Patient Time: Total time managing care of this patient today ____ minutes.
--- NOTE | 2023-06-23 23:55 | P.PNPS_ITS ---
TMS Daily Progress Note Daily TMS Progress Note Date of Service: 06/23/23 Week #: 2 Treatment #(10-10): 10 PHQ-9 Pre-Treatment (10-07): 18 PHQ-9 Most Recent (10-07): 18 Reviewed: TMS Tech Note Reviewed Verification: I have reviewed the TMS Bilingual Customer Service Specialist Note and agree with the contents. The patient remains a candidate to continue TMS treatment per protocol. Assessment and Plan Time Spent With Patient Time: Total time managing care of this patient today ____ minutes.
--- NOTE | 2023-06-26 22:25 | HO.TMSDAILY2 ---
TMS Daily Progress Note Daily TMS Progress Note Date of Service: 06/26/23 Week #: 3 Treatment #(10-10): 11 PHQ-9 Pre-Treatment (10-07): 18 PHQ-9 Most Recent (10-07): 18 Reviewed: TMS Tech Note Reviewed Verification: I have reviewed the TMS Lead Generation Specialist Note and agree with the contents. The patient remains a candidate to continue TMS treatment per protocol. Assessment and Plan (1) Chronic post-traumatic stress disorder (PTSD): Status: Acute (2) Major depressive disorder, recurrent episode, severe with anxious distress: Status: Acute Plan cont plan of care Time Spent With Patient Time: Total time managing care of this patient today ____ minutes.
--- NOTE | 2023-07-11 21:59 | HO.TMSDAILY2 ---
TMS Daily Progress Note Daily TMS Progress Note Date of Service: 06/27/23 Week #: 3 Treatment #(10-10): 12 PHQ-9 Pre-Treatment (10-07): 18 PHQ-9 Most Recent (10-07): 18 Reviewed: TMS Tech Note Reviewed Verification: I have reviewed the TMS Certified Nurse Aide Note and agree with the contents. The patient remains a candidate to continue TMS treatment per protocol. Assessment and Plan Time Spent With Patient Time: Total time managing care of this patient today ____ minutes.
--- NOTE | 2023-07-11 22:02 | HO.TMSDAILY2 ---
TMS Daily Progress Note Daily TMS Progress Note Date of Service: 06/28/23 Week #: 3 Treatment #(10-10): 13 PHQ-9 Pre-Treatment (10-07): 18 PHQ-9 Most Recent (10-07): 18 Reviewed: TMS Tech Note Reviewed Verification: I have reviewed the TMS Document Control Specialist Note and agree with the contents. The patient remains a candidate to continue TMS treatment per protocol. Assessment and Plan Time Spent With Patient Time: Total time managing care of this patient today ____ minutes.
--- NOTE | 2023-07-11 22:03 | HO.TMSDAILY2 ---
TMS Daily Progress Note Daily TMS Progress Note Date of Service: 06/29/23 Week #: 3 Treatment #(10-10): 14 PHQ-9 Pre-Treatment (10-07): 18 PHQ-9 Most Recent (10-07): 18 Reviewed: TMS Tech Note Reviewed Verification: I have reviewed the TMS Medical Biller Coder Note and agree with the contents. The patient remains a candidate to continue TMS treatment per protocol. Assessment and Plan (1) Chronic post-traumatic stress disorder (PTSD): Status: Acute (2) Major depressive disorder, recurrent episode, severe with anxious distress: Status: Acute Plan no improvement to this pt Time Spent With Patient Time: Total time managing care of this patient today ____ minutes.
--- NOTE | 2023-07-11 22:11 | HO.TMSDAILY2 ---
TMS Daily Progress Note Daily TMS Progress Note Date of Service: 07/03/23 Week #: 3 Treatment #(10-10): 15 PHQ-9 Pre-Treatment (10-07): 18 PHQ-9 Most Recent (10-07): 15 Reviewed: TMS Tech Note Reviewed Verification: I have reviewed the TMS Member Services Representative Note and agree with the contents. The patient remains a candidate to continue TMS treatment per protocol. Assessment and Plan (1) Major depressive disorder, recurrent episode, severe with anxious distress: Status: Acute (2) Chronic post-traumatic stress disorder (PTSD): Status: Acute Plan cont plan of care Time Spent With Patient Time: Total time managing care of this patient today ____ minutes.
--- NOTE | 2023-07-11 22:15 | HO.TMSDAILY2 ---
TMS Daily Progress Note Daily TMS Progress Note Date of Service: 07/05/23 Week #: 4 Treatment #(10-10): 16 PHQ-9 Pre-Treatment (10-07): 18 PHQ-9 Most Recent (10-07): 15 Reviewed: TMS Tech Note Reviewed Verification: I have reviewed the TMS Hawk Missile Air Defense Artillery Note and agree with the contents. The patient remains a candidate to continue TMS treatment per protocol. Assessment and Plan (1) Major depressive disorder, recurrent episode, severe with anxious distress: Status: Acute Plan no change to this pt Time Spent With Patient Time: Total time managing care of this patient today ____ minutes.
--- NOTE | 2023-07-11 22:19 | HO.TMSDAILY2 ---
TMS Daily Progress Note Daily TMS Progress Note Date of Service: 07/07/23 Week #: 4 Treatment #(10-10): 17 PHQ-9 Pre-Treatment (10-07): 18 PHQ-9 Most Recent (10-07): 15 Reviewed: TMS Tech Note Reviewed Verification: I have reviewed the TMS Finisher Merchant Products Note and agree with the contents. The patient remains a candidate to continue TMS treatment per protocol. Assessment and Plan (1) Major depressive disorder, recurrent episode, severe with anxious distress: Status: Acute Plan cont plan of care ? remap Time Spent With Patient Time: Total time managing care of this patient today ____ minutes.
--- NOTE | 2023-07-11 22:22 | HO.TMSDAILY2 ---
TMS Daily Progress Note Daily TMS Progress Note Date of Service: 07/10/23 Week #: 4 Treatment #(10-10): 18 PHQ-9 Pre-Treatment (10-07): 18 PHQ-9 Most Recent (10-07): 15 Reviewed: TMS Tech Note Reviewed Verification: I have reviewed the TMS Auto Travel Counselor Note and agree with the contents. The patient remains a candidate to continue TMS treatment per protocol. Assessment and Plan (1) Chronic post-traumatic stress disorder (PTSD): Status: Acute (2) Major depressive disorder, recurrent episode, severe with anxious distress: Status: Acute Plan cont plan of care ? sedation pst tx Time Spent With Patient Time: Total time managing care of this patient today ____ minutes.
--- NOTE | 2023-07-13 14:43 | HO.TMSDAILY2 ---
TMS Daily Progress Note Daily TMS Progress Note Date of Service: 07/12/23 Week #: 4 Treatment #(10-10): 19 PHQ-9 Pre-Treatment (10-07): 18 PHQ-9 Most Recent (10-07): 15 Reviewed: TMS Tech Note Reviewed Verification: I have reviewed the TMS Auto Air Conditioning Installer Note and agree with the contents. The patient remains a candidate to continue TMS treatment per protocol.
--- NOTE | 2023-07-13 14:45 | HO.TMSDAILY2 ---
TMS Daily Progress Note Daily TMS Progress Note Date of Service: 07/13/23 Week #: 4 Treatment #(10-10): 20 PHQ-9 Pre-Treatment (10-07): 18 PHQ-9 Most Recent (10-07): 13 Reviewed: TMS Tech Note Reviewed Verification: I have reviewed the TMS Correctional Maintenance Technician Note and agree with the contents. The patient remains a candidate to continue TMS treatment per protocol. Assessment and Plan (1) Major depressive disorder, recurrent episode, severe with anxious distress: Status: Acute (2) Chronic post-traumatic stress disorder (PTSD): Status: Acute Plan some dec phq9 c/o sedation ? tms related
--- NOTE | 2023-09-26 19:30 | HO.TMSDAILY2 ---
TMS Daily Progress Note Daily TMS Progress Note Date of Service: 08/23/23 Week #: 8 Treatment #(-30): 35 PHQ-9 Pre-Treatment (-): 18 PHQ-9 Most Recent (10-07): 18 FRANCHESKA-7 Pre-Treatment (0-21): 15 FRANCHESKA-7 Most Recent (0-21): 11 Reviewed: TMS Tech Note Reviewed Verification: I have reviewed the TMS Bandsaw Operator Note and agree with the contents. The patient remains a candidate to continue TMS treatment per protocol.
--- NOTE | 2023-09-26 19:32 | P.PNPS_ITS ---
TMS Daily Progress Note Daily TMS Progress Note Date of Service: 08/25/23 Week #: 8 Treatment #(-30): 36 PHQ-9 Pre-Treatment (-): 18 PHQ-9 Most Recent (10-07): 18 FRANCHESKA-7 Pre-Treatment (0-21): 15 FRANCHESKA-7 Most Recent (0-21): 11 Reviewed: TMS Tech Note Reviewed Verification: I have reviewed the TMS Pensionholder Information Clerk Note and agree with the contents. The patient remains a candidate to continue TMS treatment per protocol. Assessment and Plan (1) Major depressive disorder, recurrent episode, severe with anxious distress: Status: Acute Plan final session, no further treatment scheduled after this
--- NOTE | 2023-09-26 19:44 | P.PNPS_ITS ---
TMS Daily Progress Note Daily TMS Progress Note Date of Service: 07/07/23 Week #: 4 Treatment #(10-10): 17 PHQ-9 Pre-Treatment (-): 18 PHQ-9 Most Recent (10-07): 15 FRANCHESKA-7 Pre-Treatment (0-): 15 FRANCHESKA-7 Most Recent (0-): 10 Reviewed: TMS Tech Note Reviewed Verification: I have reviewed the TMS Octave Board Assembler Note and agree with the contents. The patient remains a candidate to continue TMS treatment per protocol.
--- NOTE | 2023-09-26 19:57 | HO.TMSDAILY2 ---
TMS Daily Progress Note Daily TMS Progress Note Date of Service: 07/10/23 Week #: 4 Treatment #(10-10): 18 PHQ-9 Pre-Treatment (-): 18 PHQ-9 Most Recent (10-07): 15 FRANCHESKA-7 Pre-Treatment (0-21): 15 FRANCHESKA-7 Most Recent (0-21): 10 Reviewed: TMS Tech Note Reviewed Verification: I have reviewed the TMS Headrig Sawyer Note and agree with the contents. The patient remains a candidate to continue TMS treatment per protocol.
--- NOTE | 2023-10-19 19:55 | HO.TMSDAILY2 ---
TMS Daily Progress Note Daily TMS Progress Note Date of Service: 07/17/23 Week #: 5 Treatment #(-30): 21 PHQ-9 Pre-Treatment (-): 18 PHQ-9 Most Recent (10-07): 15 FRANCHESKA-7 Pre-Treatment (0-21): 15 FRANCHESKA-7 Most Recent (0-21): 10 Reviewed: TMS Tech Note Reviewed Verification: I have reviewed the TMS Audio Video Technician Note and agree with the contents. The patient remains a candidate to continue TMS treatment per protocol.
--- NOTE | 2023-10-19 20:15 | HO.TMSDAILY2 ---
TMS Daily Progress Note Daily TMS Progress Note Date of Service: 07/18/23 Week #: 5 Treatment #(30): 22 PHQ-9 Pre-Treatment (-): 18 PHQ-9 Most Recent (10-07): 15 FRANCHESKA-7 Pre-Treatment (0-21): 15 FRANCHESKA-7 Most Recent (0-): 10 Reviewed: TMS Tech Note Reviewed Verification: I have reviewed the TMS Cell Operation Supervisor Note and agree with the contents. The patient remains a candidate to continue TMS treatment per protocol. Assessment and Plan (1) Major depressive disorder, recurrent episode, severe with anxious distress: Status: Acute (2) Chronic post-traumatic stress disorder (PTSD): Status: Acute Plan some sedation noted no clear connection urge dec marijuana
--- NOTE | 2023-10-19 20:17 | P.PNPS_ITS ---
TMS Daily Progress Note Daily TMS Progress Note Date of Service: 07/25/23 Week #: 5 Treatment #(-30): 24 PHQ-9 Pre-Treatment (-): 18 PHQ-9 Most Recent (10-07): 15 FRANCHESKA-7 Pre-Treatment (0-21): 15 FRANCHESKA-7 Most Recent (0-21): 10 Reviewed: TMS Tech Note Reviewed Verification: I have reviewed the TMS Feather Cutting Machine Feeder Note and agree with the contents. The patient remains a candidate to continue TMS treatment per protocol.
--- NOTE | 2023-10-19 20:19 | P.PNPS_ITS ---
TMS Daily Progress Note Daily TMS Progress Note Date of Service: 07/26/23 Week #: 5 Treatment #(-30): 25 PHQ-9 Pre-Treatment (1-): 18 PHQ-9 Most Recent (-): 15 FRANCHESKA-7 Pre-Treatment (0-21): 15 FRANCHESKA-7 Most Recent (0-21): 10 Reviewed: TMS Tech Note Reviewed Verification: I have reviewed the TMS Business Planning Director Note and agree with the contents. The patient remains a candidate to continue TMS treatment per protocol.
--- NOTE | 2023-10-19 20:20 | P.PNPS_ITS ---
TMS Daily Progress Note Daily TMS Progress Note Date of Service: 07/27/23 Week #: 6 Treatment #(-30): 26 PHQ-9 Pre-Treatment (-): 18 PHQ-9 Most Recent (10-07): 15 FRANCHESKA-7 Pre-Treatment (0-21): 15 FRANCHESKA-7 Most Recent (0-21): 10 Reviewed: TMS Tech Note Reviewed Verification: I have reviewed the TMS Industrial Maintenance Electrician Note and agree with the contents. The patient remains a candidate to continue TMS treatment per protocol. Assessment and Plan (1) Major depressive disorder, recurrent episode, severe with anxious distress: Status: Acute Plan no clear benefit till this pt
--- NOTE | 2023-10-19 20:22 | HO.TMSDAILY2 ---
TMS Daily Progress Note Daily TMS Progress Note Date of Service: 07/31/23 Week #: 6 Treatment #(-30): 26 PHQ-9 Pre-Treatment (-): 18 PHQ-9 Most Recent (10-07): 15 FRANCHESKA-7 Pre-Treatment (0-21): 15 FRANCHESKA-7 Most Recent (0-21): 10 Reviewed: TMS Tech Note Reviewed Verification: I have reviewed the TMS Safety And Occupational Health Manager Note and agree with the contents. The patient remains a candidate to continue TMS treatment per protocol.
--- NOTE | 2023-10-19 20:23 | P.PNPS_ITS ---
TMS Daily Progress Note Daily TMS Progress Note Date of Service: 08/01/23 Week #: 6 Treatment #(-30): 27 PHQ-9 Pre-Treatment (-): 18 PHQ-9 Most Recent (10-07): 15 FRANCHESKA-7 Pre-Treatment (0-): 15 FRANCHESKA-7 Most Recent (0-): 10 Reviewed: TMS Tech Note Reviewed Verification: I have reviewed the TMS Philosophy Specialist Note and agree with the contents. The patient remains a candidate to continue TMS treatment per protocol. Assessment and Plan (1) Major depressive disorder, recurrent episode, severe with anxious distress: Status: Acute Plan cont plan of care
--- NOTE | 2023-10-19 20:26 | P.PNPS_ITS ---
TMS Daily Progress Note Daily TMS Progress Note Date of Service: 08/02/23 Week #: 6 Treatment #(-30): 28 PHQ-9 Pre-Treatment (-): 18 PHQ-9 Most Recent (10-07): 15 FRANCHESKA-7 Pre-Treatment (0-21): 15 FRANCHESKA-7 Most Recent (0-21): 10 Reviewed: TMS Tech Note Reviewed Verification: I have reviewed the TMS Window And Door Installer Note and agree with the contents. The patient remains a candidate to continue TMS treatment per protocol.
--- NOTE | 2023-10-19 20:27 | P.PNPS_ITS ---
TMS Daily Progress Note Daily TMS Progress Note Date of Service: 08/09/23 Week #: 6 Treatment #(-30): 29 PHQ-9 Pre-Treatment (-): 18 PHQ-9 Most Recent (10-07): 15 FRANCHESKA-7 Pre-Treatment (0-21): 15 FRANCHESKA-7 Most Recent (0-21): 10 Reviewed: TMS Tech Note Reviewed Verification: I have reviewed the TMS Senior Talent Acquisition Specialist Note and agree with the contents. The patient remains a candidate to continue TMS treatment per protocol.
--- NOTE | 2023-10-19 20:33 | HO.TMSDAILY2 ---
TMS Daily Progress Note Daily TMS Progress Note Date of Service: 08/10/23 Week #: 7 Treatment #(10-10): 31 PHQ-9 Pre-Treatment (-): 18 PHQ-9 Most Recent (10-07): 15 FRANCHESKA-7 Pre-Treatment (0-21): 15 FRANCHESKA-7 Most Recent (0-21): 10 Reviewed: TMS Tech Note Reviewed Verification: I have reviewed the TMS Preservative Filler Machine Operator Note and agree with the contents. The patient remains a candidate to continue TMS treatment per protocol. Assessment and Plan (1) Major depressive disorder, recurrent episode, severe with anxious distress: Status: Acute
--- NOTE | 2023-10-19 21:09 | HO.TMSDAILY2 ---
TMS Daily Progress Note Daily TMS Progress Note Date of Service: 08/14/23 Week #: 7 Treatment #(-): 32 PHQ-9 Pre-Treatment (-): 18 PHQ-9 Most Recent (10-07): 18 FRANCHESKA-7 Pre-Treatment (0-21): 15 FRANCHESKA-7 Most Recent (0-21): 10 Reviewed: TMS Tech Note Reviewed Verification: I have reviewed the TMS Under Cutting Machine Operator Note and agree with the contents. The patient remains a candidate to continue TMS treatment per protocol. Assessment and Plan (1) Major depressive disorder, recurrent episode, severe with anxious distress: Status: Acute Plan no clear improvement
--- NOTE | 2023-10-19 21:11 | HO.TMSDAILY2 ---
TMS Daily Progress Note Daily TMS Progress Note Date of Service: 08/16/23 Week #: 7 Treatment #(-30): 33 PHQ-9 Pre-Treatment (-): 18 PHQ-9 Most Recent (10-07): 18 FRANCHESKA-7 Pre-Treatment (0-21): 15 FRANCHESKA-7 Most Recent (0-21): 10 Reviewed: TMS Tech Note Reviewed Verification: I have reviewed the TMS Vtc Technician Note and agree with the contents. The patient remains a candidate to continue TMS treatment per protocol. Assessment and Plan (1) Major depressive disorder, recurrent episode, severe with anxious distress: Status: Acute Plan irritable no clear improvement
--- NOTE | 2023-10-19 21:14 | P.PNPS_ITS ---
TMS Daily Progress Note Daily TMS Progress Note Date of Service: 08/18/23 Week #: 8 Treatment #(-30): 34 PHQ-9 Pre-Treatment (-): 18 PHQ-9 Most Recent (10-07): 18 FRANCHESKA-7 Pre-Treatment (0-21): 15 FRANCHESKA-7 Most Recent (0-21): 10 Reviewed: TMS Tech Note Reviewed Verification: I have reviewed the TMS Supervisor Road Administrator Note and agree with the contents. The patient remains a candidate to continue TMS treatment per protocol.
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
--- NOTE | 2023-10-19 21:18 | HO.TMSDAILY2 ---
TMS Daily Progress Note Daily TMS Progress Note Date of Service: 08/25/23 Week #: 8 Treatment #(-30): 36 PHQ-9 Pre-Treatment (-): 18 PHQ-9 Most Recent (10-07): 18 FRANCHESKA-7 Pre-Treatment (0-21): 15 FRANCHESKA-7 Most Recent (0-21): 10 Reviewed: TMS Tech Note Reviewed Verification: I have reviewed the TMS Finishing Department Supervisor Note and agree with the contents. The patient remains a candidate to continue TMS treatment per protocol. Assessment and Plan (1) Chronic post-traumatic stress disorder (PTSD): Status: Acute (2) Major depressive disorder, recurrent episode, severe with anxious distress: Status: Acute Plan last tx no improvement noted
== END 2023-08-28 11:38 | disposition home or self-care (01) ==
LOC: HO.PTMS 12:30
PROVIDERS: PCP Internal Medicine; Visit Provider Psychiatry & Neurology Psychiatry
DX: F33.2 Major depressive disorder, recurrent severe without psychotic features (principal); F43.12 Post-traumatic stress disorder, chronic; F90.9 Attention-deficit hyperactivity disorder, unspecified type; Z79.899 Other long term (current) drug therapy
CPT/HCPCS: 90867; 90868; 99214

== ENCOUNTER → 2023-08-25 12:30 | Outpatient (BNV) | payer SELFPAY | PROVIDERS: PCP Internal Medicine; Visit Provider Psychiatry & Neurology Psychiatry | DX: F33.2 Major depressive disorder, recurrent severe without psychotic features (principal) | CPT/HCPCS: 90868 ==

== ENCOUNTER 2023-12-20 15:39 | Outpatient (REF) | payer OTHER, SELFPAY ==
[2023-12-20 16:45] LABS: Influenza A PCR NEGATIVE (Negative); Influenza B PCR NEGATIVE (Negative); Resp Syncy Virus RNA Qual PCR NEGATIVE (Negative); SARS COV2 PCR INHOUSE NEGATIVE (Negative)
== END 2023-12-20 15:40 | disposition home or self-care (01) ==
LOC: HO.LNP 15:39
PROVIDERS: Visit Provider Internal Medicine
DX: Z11.52 Encounter for screening for COVID-19 (principal); R05.9 Cough, unspecified; R06.02 Shortness of breath; R06.2 Wheezing
CPT/HCPCS: 0241U

== ENCOUNTER 2024-04-30 12:02 | Outpatient (REF) | payer OTHER, SELFPAY ==
[2024-04-30 13:01] LABS: Lithium 0.57 mmol/L (0.60-1.20)
[2024-04-30 13:08] LABS: Anion Gap 11 (12-20)
[2024-04-30 13:23] LABS: Blood Urea Nitrogen 10 mg/dL (9-16); Calcium 9.9 mg/dL (8.4-10.2); Carbon Dioxide 30 mmol/L (22-29); Chloride 104 mmol/L (96-108); Estimated Glomerular Filt Rate > 60; Glucose Random 143 mg/dL (60-115); Potassium 3.9 mmol/L (3.3-5.1); Sodium 141 mmol/L (135-145)
[2024-04-30 13:43] LABS: Thyroid Stimulating Hormone 19.37 uIU/mL (0.32-4.0)
[2024-04-30 13:55] LABS: T4 Thyroxine 5.1 ug/dL (4.5-12.0)
[2024-05-01 08:59] LABS: Triiodothyronine T3 Total 111 ng/dL (76-181)
== END 2024-04-30 12:03 | disposition home or self-care (01) ==
LOC: HO.LAB 12:02
PROVIDERS: PCP Internal Medicine; Visit Provider Nurse Practitioner
DX: Z79.899 Other long term (current) drug therapy (principal)
CPT/HCPCS: 36415; 80048; 80178; 84436; 84443; 84480